=== PATIENT | male | born 1950 | race Hispanic/Latino ===

== ENCOUNTER → 2017-06-03 | Outpatient (REF) | payer MEDICARE, MEDICAID ==
[2017-06-07 00:06] LABS: OXCARBAZEPINE 23 ug/mL (10-35)
[2017-06-07 00:06] LABS: ANTINUCLEAR ANTIBODIES DIRECT Negative (Negative); Lyme Disease IgG/IgM Antibodie <0.91 ISR (0.00-0.90); Lyme Disease IgM Ab Quantitati <0.80 index (0.00-0.79)
== END ==
LOC: M LAB REF 17:30
DX: M25.50 Pain in unspecified joint (principal); R56.1 Post traumatic seizures
CPT/HCPCS: 86038

== ENCOUNTER → 2017-06-10 | Outpatient (REF) | payer MEDICARE, MEDICAID ==
[2017-06-13 00:07] LABS: CYCLIC CITRULLINATED PEPTIDE 53 units (0-19)
== END ==
LOC: M LAB REF 18:04
DX: M25.50 Pain in unspecified joint (principal)
CPT/HCPCS: 86200

== ENCOUNTER → 2017-06-10 | Outpatient (REF) | payer MEDICARE, MEDICAID ==
[2017-06-14 00:07] LABS: Lyme Disease IgG/IgM Antibodie <0.91 ISR (0.00-0.90); Lyme Disease IgM Ab Quantitati <0.80 index (0.00-0.79)
== END ==
LOC: M LAB REF 06-11 18:21
DX: M25.50 Pain in unspecified joint (principal); R53.1 Weakness; R53.83 Other fatigue
CPT/HCPCS: 86617

== ENCOUNTER → 2018-08-10 | Outpatient (REF) | payer MEDICARE, MEDICAID ==
[2018-08-14 00:06] LABS: LEVETIRACETAM (KEPPRA) 18.8 ug/mL (10.0-40.0)
== END ==
LOC: M LAB REF 16:33
PROVIDERS: ATTEND Internal Medicine
DX: R56.1 Post traumatic seizures (principal)

== ENCOUNTER → 2019-06-18 | Outpatient (REF) | payer MEDICARE, MEDICAID ==
[2019-06-21 14:10] LABS: LEVETIRACETAM (KEPPRA) 21.7 ug/mL (10.0-40.0)
== END ==
LOC: M LAB REF 17:03
PROVIDERS: ATTEND Internal Medicine
DX: R56.1 Post traumatic seizures (principal)

== ENCOUNTER → 2019-12-03 | Outpatient (REF) | payer MEDICARE, MEDICAID | LOC: M LAB REF 17:49 | PROVIDERS: ATTEND Internal Medicine | DX: R56.1 Post traumatic seizures (principal) ==

== ENCOUNTER → 2020-06-29 | Outpatient (REF) | payer MEDICARE, MEDICAID | LOC: M LAB REF 16:10 | PROVIDERS: ATTEND Internal Medicine | DX: G40.89 Other seizures (principal) ==

== ENCOUNTER → 2021-04-13 | Outpatient (REF) | LOC: M LABSMTC 13:13 | PROVIDERS: ATTEND Pediatrics | DX: Z20.828 Contact with and (suspected) exposure to other viral communicable diseases (principal) ==

== ENCOUNTER → 2021-05-29 | Outpatient (REF) | payer MEDICARE, MEDICAID | LOC: M LAB REF 16:19 | PROVIDERS: ATTEND Internal Medicine | DX: R56.1 Post traumatic seizures (principal); Z87.820 Personal history of traumatic brain injury ==

== ENCOUNTER → 2022-05-08 | Outpatient (REF) | payer MEDICARE, MEDICAID ==
[2022-05-08 16:49] LABS: INR 0.98; PROTHROMBIN TIME 13.1 SECONDS (12.5-14.5)
[2022-05-08 16:50] LABS: PARTIAL THROMBOPLASTIN TIME 31.4 SECONDS (24.8-34.2)
[2022-05-10 14:08] LABS: ANTINUCLEAR ANTIBODIES DIRECT Negative (Negative)
[2022-05-13 19:07] LABS: ALBUMIN 3.9 g/dL (2.9-4.4); ALPHA-1-GLOBULINS 0.3 g/dL (0.0-0.4); BETA-1-GLOBULINS 1.1 g/dL (0.7-1.3); TOTAL PROTEIN ELECTROPHORESIS 8.3 g/dL (6.0-8.5)
== END ==
LOC: M LAB REF 16:04
PROVIDERS: ATTEND Internal Medicine
DX: H34.8130 Central retinal vein occlusion, bilateral, with macular edema (principal)

== ENCOUNTER → 2023-07-28 | Outpatient (REF) | payer MEDICARE, MEDICAID ==
[2023-07-28 17:09] LABS: C REACTIVE PROTEIN QUANTITATIV < 0.40 MG/DL (<1.0)
[2023-07-28 17:23] LABS: RHEUMATOID FACTOR QUANT 250.5 IU/ML (<14); URIC ACID 3.6 MG/DL (3.7-9.2)
== END ==
LOC: M LAB REF 16:39
PROVIDERS: ATTEND Internal Medicine
DX: M25.561 Pain in right knee (principal)

== ENCOUNTER → 2023-07-29 | Outpatient (CLI) | payer MEDICARE, MEDICAID | LOC: M WUC 09:13 | PROVIDERS: ATTEND Internal Medicine | DX: M11.261 Other chondrocalcinosis, right knee (principal); M25.561 Pain in right knee ==

== ENCOUNTER → 2023-09-24 | Outpatient (CLI) | payer MEDICAID, MEDICARE | LOC: M RAD 12:16 | PROVIDERS: ATTEND Internal Medicine | DX: R05.9 Cough, unspecified (principal); R06.2 Wheezing ==

== ENCOUNTER → 2023-10-09 | Outpatient (CLI) | payer MEDICARE | LOC: M RAD 13:19 | PROVIDERS: ATTEND Internal Medicine | DX: F17.210 Nicotine dependence, cigarettes, uncomplicated (principal); Z12.2 Encounter for screening for malignant neoplasm of respiratory organs; J44.9 Chronic obstructive pulmonary disease, unspecified; J43.9 Emphysema, unspecified; K76.0 Fatty (change of) liver, not elsewhere classified ==

== ENCOUNTER → 2024-04-21 | Outpatient (REF) | payer MEDICARE, MEDICAID | LOC: M LAB REF 16:19 | PROVIDERS: ATTEND Internal Medicine | DX: M06.9 Rheumatoid arthritis, unspecified (principal) ==

== ENCOUNTER → 2024-11-25 | Outpatient (REF) | payer MEDICARE, MEDICAID | LOC: M LAB REF 17:02 | PROVIDERS: ATTEND Internal Medicine | DX: G60.9 Hereditary and idiopathic neuropathy, unspecified (principal) ==